=== PATIENT | male | born 1965 | race Caucasian/White ===

== ENCOUNTER 2024-04-21 11:57 | Emergency (ER) | payer OTHER ==
[2024-04-21] MEDS: Diphtheria,Pertussis(Acell),Tetanus Vaccine 0.5 ML Syringe IM ONE (13:33)
== END 2024-04-21 13:38 | disposition home or self-care (01) ==
LOC: JD.ED 11:57
DX: S00.83XA Contusion of other part of head, initial encounter (principal); Z23 Encounter for immunization; W22.8XXA Striking against or struck by other objects, initial encounter
CPT/HCPCS: 70486; 70486-26; 90471; 90715; 99283-25

== ENCOUNTER 2024-09-12 13:27 | Emergency (ER) | payer OTHER | END 2024-09-12 16:10 | disposition home or self-care (01) | LOC: JD.ED 13:27 | DX: K40.90 Unilateral inguinal hernia, without obstruction or gangrene, not specified as recurrent (principal) | CPT/HCPCS: 99283 ==